=== PATIENT | female | born 1960 | race Caucasian/White ===

== ENCOUNTER → 2016-12-25 | Outpatient (CLI) | payer BC ==
[~2016-12-25] MED LIST: ALBUTEROL17 GM INH; ALLERGY SHOT SUBQ; AMITIZA24 MCG PO; ASTEPRO205.5 MCG/; BREO ELLIPTA I1 EACH INH; PRAVACHOL20 MG PO; PREVACID PO; PROBIOTIC1 EAC5 PO; SINGULAIR PO; THRIVE PO; VIIBRYD40 MG PO; VITAMIN D32000 UNI1 PO
--- NOTE | ~2016-12-25 | US6 ---
[facility] A Service of [facility] RADIOLOGY TEXT RESULTS PATIENT: CHAKA NEWMAN LOCATION: [facility] : 62 UNIT #: [id number] AGE: [address]: Светлана Mcclendon MD SEX: F ORDER DR: [id number] [place] [id number] O MR#: [id number] Acc #: [id number] NAME: CHAKA NEWMAN : 1960 SEX: F STUDY DATE/TIME: 12/25/2016 8:59 UNIT: [facility] ROOM: STUDY DESCRIPTION: US Abdominal Limited Attending Physician: Светлана Mcclendon M.D. Referring Physician: Светлана Mcclendon M.D. Ordering Physician: Светлана Mcclendon M.D. Primary Care Physician: Светлана Mcclendon M.D. MEDICAL IMAGING REPORT This report is preliminary unless electronic signature is present. EXAM Right upper quadrant abdominal ultrasound. INDICATIONS Elevated liver enzyme levels for the past 3 weeks. PROCEDURE Orantes-scale and Doppler imaging of right upper quadrant of the abdomen. COMPARISON None. FINDINGS Pancreas is obscured by bowel gas and not well seen. Right kidney measures 10.4 cm. No hydronephrosis. Unremarkable gallbladder. Common duct measures 4 mm. The liver measures 17.4 cm. No definite liver mass seen on submitted images. IMPRESSION 1. Study is technically difficult secondary to body habitus. Pancreas is not well seen. 2. Otherwise negative right upper quadrant ultrasound. Dictated by... Peña Paulino M.D. THIS IS AN ELECTRONICALLY VERIFIED REPORT Peña Paulino M.D. at 12/26/2016 6:50 AM EED/arya TD: 12/25/2016 12:07 JOB #: [id number] [facility] A Service of [facility] RADIOLOGY TEXT RESULTS PATIENT: CHAKA NEWMAN LOCATION: [facility] : 62 UNIT #: [id number] AGE: [address]: Светлана Mcclendon MD SEX: F ORDER DR: MEDICAL IMAGING REPORT Page 1 of 1
== END | disposition home or self-care (01) ==
LOC: SGUS 08:47
DX: R79.89 Other specified abnormal findings of blood chemistry (principal)
CPT/HCPCS: 76705

== ENCOUNTER → 2017-01-20 | Outpatient (CLI) | payer BC, OTHER ==
--- NOTE | ~2017-01-20 | CR63 ---
[facility] A Service of [facility] RADIOLOGY TEXT RESULTS PATIENT: CHAKA NEWMAN LOCATION: [facility] : 62 UNIT #: [id number] AGE: [address]: Andrae Scott MD SEX: F ORDER DR: [id number] [facility] [address] [place], [place] [address] [id number] O MR#: [id number] Acc #: [id number] NAME: CHAKA NEWMAN : 1960 SEX: F STUDY DATE/TIME: 01/20/2017 12:09 UNIT: [facility] ROOM: STUDY DESCRIPTION: CR Chest 2 View Attending Physician: Andrae Scott M.D. Referring Physician: Andrae Scott M.D. Ordering Physician: Andrae Scott M.D. Primary Care Physician: Светлана Mcclendon M.D. MEDICAL IMAGING REPORT This report is preliminary unless electronic signature is present EXAM Chest PA and lateral HISTORY Shortness of breath for 6 days. FINDINGS PA and lateral views are obtained. The cardiac size in the patient is normal and the lungs are clear. Compared with the patient's last chest there has been no change. CONCLUSION No active disease. No change from prior radiographs. Dictated by... Nnamdi Pruett M.D. THIS IS AN ELECTRONICALLY VERIFIED REPORT Nnamdi Pruett M.D. at 01/21/2017 7:10 AM KATIE/sonido TD: 01/20/2017 14:24 JOB #: [id number] MEDICAL IMAGING REPORT Page 1 of 1 COPY
== END | disposition home or self-care (01) ==
LOC: CRAD 11:33
DX: R05 Cough (principal)
CPT/HCPCS: 71020

== ENCOUNTER → 2017-02-26 | Day surgery (SDC) | payer BC, OTHER ==
--- NOTE | ~2017-02-26 | OR ---
Unit #: [id number] #: [id number] Patient: CHAKA NEWMAN [id number] [address] [place], [place] [address] [id number] O MR#: [id number] NAME: CHAKA NEWMAN ROOM: Date of Procedure: 02/26/2017 Admission Date: 02/26/2017 Surgeon: Tony Anthony M.D. : 1960 Attending Physician: Tony Anthony M.D. Referring Physician: Tony Anthony M.D. Primary Care Physician: Светлана Mcclendon M.D. OPERATIVE REPORT PRIMARY CARE PHYSICIAN Светлана Mcclendon M.D. PREOPERATIVE DIAGNOSIS Colorectal cancer screening in an average-risk patient. PROCEDURE PERFORMED Colonoscopy up to cecum. POSTOPERATIVE DIAGNOSES Completely normal examination. The patient has a single stool bowel in the proximal sigmoid, which was dislodged. Otherwise, the colonic prep was good. No polyps, diverticula, or hemorrhoids were seen. RECOMMENDATIONS Repeat colonoscopy in 5 years. SEDATION USED MAC. DESCRIPTION OF PROCEDURE Following detailed explanation of the potential risks and complications of a colonoscopy, namely perforation, bleeding, and complications related to sedation, the patient was brought to GI lab and laid in the left lateral decubitus position. A digital rectal examination was performed, which was normal. Lubricated tip of the Olympus video colonoscope was inserted through the anus and advanced under direct vision. The scope was advanced past rectum into the sigmoid colon. A single stool bowel was noted in this area; however, the scope could be advanced past the stool bowel into the proximal sigmoid. No diverticula were noted here. The scope was advanced past rectosigmoid into descending colon. Again, no diverticula were seen in this area. The scope tip was then navigated all the way up to cecum with visualization of the ileocecal valve and the appendiceal orifice. Preparation was good with good visualization and photodocumentation was obtained. Successive segments of the colonic mucosa were examined upon withdrawal and appeared unremarkable, there being no polyps, mass lesions, AVMs, or diverticula. The patient did not have any hemorrhoids at the anal verge. The scope was then withdrawn and the patient returned to recovery area. She tolerated the procedure without any postprocedure complications. Unit #: [id number] #: [id number] Patient: CHAKA NEWMAN Dictated by... Gera Perry/gi TD: 02/26/2017 13:18 JOB #: [id number] OPERATIVE REPORT Page 1 of 1 X Tony Anthony MD X PROCEDURE OPERATIVE NOTE
== END | disposition home or self-care (01) ==
LOC: COPS 08:46
DX: Z12.11 Encounter for screening for malignant neoplasm of colon (principal); R19.5 Other fecal abnormalities; J45.909 Unspecified asthma, uncomplicated; Z96.1 Presence of intraocular lens; Z98.890 Other specified postprocedural states; Z79.51 Long term (current) use of inhaled steroids; Z79.899 Other long term (current) drug therapy
CPT/HCPCS: J2250